=== PATIENT | male | born 1990 | race Caucasian/White ===

== ENCOUNTER 2016-10-08 10:20 | Emergency (ER) | payer BC, MEDICAID ==
[~2016-10-08] VITALS: Wt 78.0 kg
[~2016-10-08 10:20] MED LIST: CEPH-443 PO; FAMO-18 PO; MAG355OR15 PO; NAPR-688 PO; ONDA4TAB8 PO
[2016-10-08] MEDS ORDERED: HYDROCODONE/APAP (5/325) TAB PO ONE (13:30)
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
[2016-10-08] MEDS ORDERED: AMOX1TAB10 PO (14:14)
[2016-10-08] MEDS ORDERED: TRAM50TA2 PO (14:15)
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
[2016-10-08 14:46] VITALS: BP 119/80; PULSE 72; RESP 18; TEMP 98.2
== END 2016-10-08 14:45 | disposition home or self-care (01) ==
LOC: FTE 10:20
DX: S01.311A Laceration without foreign body of right ear, initial encounter (principal); S02.40EA Zygomatic fracture, right side, initial encounter for closed fracture; F17.210 Nicotine dependence, cigarettes, uncomplicated; Y00.XXXA Assault by blunt object, initial encounter; Y92.9 Unspecified place or not applicable
CPT/HCPCS: 70450; 70486; 70490; Z7502; Z7610

== ENCOUNTER 2016-10-17 17:11 | Emergency (ER) | payer MEDICAID ==
[~2016-10-17] VITALS: Ht 162.6 cm; Wt 67.0 kg
[~2016-10-17 17:11] MED LIST changes: +AMOX1TAB10 PO; +TRAM50TA2 PO
[2016-10-17 17:17] VITALS: Ht 162.6 cm; Wt 67.0 kg
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
== END 2016-10-17 17:27 | disposition home or self-care (01) ==
LOC: E/R 17:11
DX: F10.120 Alcohol abuse with intoxication, uncomplicated (principal); F17.210 Nicotine dependence, cigarettes, uncomplicated
CPT/HCPCS: 99282

== ENCOUNTER 2017-01-18 23:57 | Emergency (ER) | payer MEDICAID ==
[~2017-01-18] VITALS: Ht 180.3 cm; Wt 77.3 kg
[~2017-01-18 23:57] MED LIST changes: -FAMO-18 PO; +FAMO-96 PO
[2017-01-19 00:01] VITALS: Ht 180.3 cm; Wt 77.3 kg
[2017-01-19] MEDS ORDERED: SOD CHLORIDE 0.9% 1,000 ML IV STA (00:14)
[2017-01-19 00:29] LABS: BASOPHIL # 0.1 10^3/ul (0.0-0.1); BASOPHILS % 1.1 % (0.0-2.0); EOSINOPHILS # 0.3 10^3/ul (0.0-0.5); HEMOGLOBIN 14.6 g/dl (14.0-18.0); LYMPHOCYTES # 2.6 10^3/ul (0.8-2.9); LYMPHOCYTES % 31.5 % (15.0-51.0); MEAN CORPUSCULAR HEMOGLOBIN 31.9 pg (29.0-33.0); MEAN CORPUSCULAR VOLUME 93.9 fl (82.0-101.0); MEAN PLATELET VOLUME 9.4 fl (7.4-10.4); MONOCYTE # 0.9 10^3/ul (0.3-0.9); MONOCYTES % 10.4 % (0.0-11.0); NEUTROPHILS % 53.8 % (39.0-77.0); PLATELET COUNT 401 10^3/UL (140-415); RED BLOOD COUNT 4.58 10^6/ul (4.70-6.10); RED CELL DISTRIBUTION WIDTH 12.4 % (11.5-14.5); WHITE BLOOD COUNT 8.3 10^3/ul (4.8-10.8)
[2017-01-19] MEDS ORDERED: LORAZEPAM 2 MG INJ IV ONE (00:30)
[2017-01-19 00:52] LABS: ALANINE AMINOTRANSFERASE 28 IU/L (13-69); ALBUMIN/GLOBULIN RATIO 1.47; ALKALINE PHOSPHATASE 87 IU/L (42-121); ANION GAP 29 (8-16); ASPARTATE AMINO TRANSFERASE 29 IU/L (15-46); BILIRUBIN,INDIRECT 0.3 mg/dl (0-1.1); BILIRUBIN,TOTAL 0.3 mg/dl (0.2-1.3); BLOOD UREA NITROGEN 13 mg/dl (7-20); CALCIUM 9.8 mg/dl (8.4-10.2); CARBON DIOXIDE 27 mmol/L (21-31); CHLORIDE 97 mmol/L (97-110); CREATININE 0.97 mg/dl (0.61-1.24); GLUCOSE 93 mg/dl (70-220); POTASSIUM 4.3 mmol/L (3.5-5.1); SODIUM 149 mmol/L (135-144); TOTAL PROTEIN 8.4 g/dl (6.1-8.1)
--- NOTE | 2017-01-19 00:57 | RADRPT ---
PROCEDURE: XR Chest. CLINICAL INDICATION: Chest pain. Overdose TECHNIQUE: Portable AP view of the chest was obtained. COMPARISON: None. FINDINGS: The cardiomediastinal silhouette is within normal limits. The lungs are clear. There is no evidenc e for pleural effusion, pneumothorax or pulmonary vascular congestion. The osseous structures are i ntact with no evidence for acute abnormality. RPTAT:HJJR IMPRESSION: No evidence for acute intrathoracic pathology. Physician Katina Date Time Electronically viewed and signed by Physician Katina on 01/19/2017 00:57 JR/
[2017-01-19 01:03] LABS: TROPONIN-I < 0.012 ng/ml (0.00-0.12)
--- NOTE | 2017-01-19 01:27 | RADRPT ---
PROCEDURE: CT head, without contrast. CLINICAL INDICATION: Altered level of consciousness. Drug overdose. TECHNIQUE: Noncontrast CT examination of the head, with axial, sagittal and coronal reformatted im ages. Automated dose exposure control was employed. CTDI: 41.12 and DLP: 720.23. COMPARISON: CT head dated 10/08/2016. FINDINGS: No acute hemorrhage. Subarachnoid spaces are substantially preserved and symmetric. Ventricles ar e unremarkable. No mass effect. Meza-white matter distinction is preserved without evident decreased attenuation t o suggest acute or recent infarct. Chronic mucous retention cyst in the anterior right maxillary sinus. Sinuses and osseous structures are otherwise unremarkable. IMPRESSION: No acute process in the head. RPTAT: [facility] Physician Mansi Date Time Electronically viewed and signed by Physician Mansi on 01/19/2017 01:27 RS/
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
[2017-01-19 03:08] LABS: ADD UMIC NO; UR ASCORBIC ACID NEGATIVE (NEGATIVE); UR BILIRUBIN (Dip) NEGATIVE (NEGATIVE); UR BLOOD (Dip) NEGATIVE (NEGATIVE); UR CLARITY CLEAR (CLEAR); UR COLOR STRAW (YELLOW); UR GLUCOSE (Dip) NEGATIVE (NEGATIVE); UR KETONES (Dip) NEGATIVE (NEGATIVE); UR LEUKOCYTE ESTERASE (Dip) NEGATIVE Leu/ul (NEGATIVE); UR NITRITE (Dip) NEGATIVE (NEGATIVE); UR SPECIFIC GRAVITY (Dip) 1.006 (1.003-1.030); UR TOTAL PROTEIN (Dip) NEGATIVE (NEGATIVE); UR UROBILINOGEN (Dip) NEGATIVE (NEGATIVE)
[2017-01-19 03:15] LABS: ACETAMINOPHEN < 10.0 ug/ml (10.0-30.0); SALICYLATE < 1.0 mg/dl (5.0-30.0)
[2017-01-19 03:29] LABS: BARBITURATES NEGATIVE (NEGATIVE); BENZODIAZEPINES NEGATIVE (NEGATIVE); CANNABINOIDS POSITIVE (NEGATIVE); COCAINE NEGATIVE (NEGATIVE); OPIATES NEGATIVE (NEGATIVE)
== END 2017-01-19 10:05 | disposition home or self-care (01) ==
LOC: E/R 23:57
DX: T50.901A Poisoning by unspecified drugs, medicaments and biological substances, accidental (unintentional), initial encounter (principal); F15.10 Other stimulant abuse, uncomplicated; E86.0 Dehydration; F17.210 Nicotine dependence, cigarettes, uncomplicated; R40.4 Transient alteration of awareness
CPT/HCPCS: 36415; 70450; 71010; 80053; 80306; 80307; 81003; 82962; 83690; 84484; 85025; 96374; J2060; J7030; P9612; Z7502

== ENCOUNTER 2017-03-24 14:05 | Emergency (ER) | payer MEDICAID ==
[~2017-03-24] VITALS: Ht 172.7 cm; Wt 68.2 kg
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
[2017-03-24 14:41] VITALS: Ht 172.7 cm; Wt 68.2 kg
--- NOTE | 2017-03-24 15:37 | RADRPT ---
PROCEDURE: XR Chest. CLINICAL INDICATION: EtOH; chest pain. TECHNIQUE: Single frontal view of the chest was obtained. COMPARISON: Chest x-ray 01/19/2017 12:37 a.m. FINDINGS: 80 neck brace is noted projecting in the supraclavicular areas. The soft tissues are otherwise ivania l. The bony elements are normal. The heart, cardiomediastinal silhouette and hilar structures are normal. The pulmonary vasculature is normal. There is a left-sided aorta. The lungs are clear. The costophrenic angles are normal. IMPRESSION: 1. Normal chest x-ray showing no significant change when compared to 01/19/2017. RPTAT:AAJJ Physician Luna Date Time Electronically viewed and signed by Talha Villanueva Physician on 03/24/2017 15:37 /
[2017-03-24] MEDS ORDERED: IBUP-1542 PO (16:26)
[2017-03-24 17:19] VITALS: BP 136/72; PULSE 74; RESP 16; TEMP 98.6
== END 2017-03-24 18:10 | disposition home or self-care (01) ==
LOC: E/R 14:05
DX: R07.89 Other chest pain (principal); F10.10 Alcohol abuse, uncomplicated; F17.210 Nicotine dependence, cigarettes, uncomplicated
CPT/HCPCS: 71010; 93005; Z7502

== ENCOUNTER 2018-02-27 04:41 | Emergency (ER) | END 2018-02-27 06:50 | disposition home or self-care (01) ==

== ENCOUNTER 2018-03-16 22:55 | Emergency (ER) | END 2018-03-17 00:47 | disposition home or self-care (01) ==

== ENCOUNTER 2018-03-18 19:07 | Emergency (ER) | END 2018-03-18 20:55 | disposition home or self-care (01) ==

== ENCOUNTER 2018-04-23 08:05 | Emergency (ER) | END 2018-04-23 19:30 ==

== ENCOUNTER 2018-10-15 08:26 | Emergency (ER) | payer MEDICAID ==
[~2018-10-15] VITALS: Ht 167.6 cm; Wt 86.1 kg
[2018-10-15 08:38] VITALS: Ht 167.6 cm; Wt 86.1 kg
[2018-10-15] MEDS ORDERED: LORAZEPAM 1 MG TAB PO ONE ×3 (09:00→10:30)
[2018-10-15] MEDS ORDERED: HALOPERIDOL 5 MG INJ IM STA (10:12)
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
[2018-10-15 15:47] VITALS: BP 128/74; PULSE 66; RESP 17
== END 2018-10-15 17:10 | disposition home or self-care (01) ==
LOC: E/R 08:26
DX: F15.10 Other stimulant abuse, uncomplicated (principal); R40.2142 Coma scale, eyes open, spontaneous, at arrival to emergency department; R40.2362 Coma scale, best motor response, obeys commands, at arrival to emergency department; R40.2252 Coma scale, best verbal response, oriented, at arrival to emergency department; R79.89 Other specified abnormal findings of blood chemistry
CPT/HCPCS: 80053; 80307; 85025; 85610; 85730; 96372; J1630; Z7502; Z7610